=== PATIENT | male | born 1950 | race Caucasian/White ===

== ENCOUNTER 2017-01-07 08:59 | Day surgery (SDC) | payer MEDICARE, OTHER ==
[~2017-01-07] VITALS: Ht 175.3 cm; Wt 95.5 kg
[~2017-01-07 08:59] MED LIST: ASPIRIN 81 MG E81 MG PO; ASPIRIN EC81 M1 PO; HEMOCYTE PLUS C1 CAP PO; HYDROCODONE-APA1 TAB PO; K-DUR20 MEQ PO; LISINOPRIL-HCTZ1 T11 PO; PEPCID20 MG PO; PHENERGAN25 M1 PO; PLAVIX75 MG PO; PRILOSEC20 MG PO; PRINZIDE 20/12.1 TAB PO; TENORMIN25 MG PO
[2017-01-07 10:14] LABS: BASOPHILS 0.4 % (0.0-2.0); EOSINOPHILS 3.7 % (0-7); HEMATOCRIT 43.3 % (42.0-54.0); HEMOGLOBIN 14.7 g/dL (13.5-17.5); IMMATURE GRANULOCYTES 0.2 % (0-5); LYMPHOCYTES 34.1 % (15-50); MCH 30.6 pg (26.0-34.0); MCHC 33.9 g/dL (31.0-37.0); MEAN PLATELET VOLUME 9.3 fL (7.4-10.4); NEUTROPHILS 50.6 % (40-80); RBC 4.81 10x6/uL (4.20-6.10); RDW 13.2 % (11.5-14.5); WBC 5.7 10x3/uL (4.8-10.8)
[2017-01-07 10:29] LABS: CALC OSMOLALITY 278 mosm/kg (275-300); CALCIUM 8.8 mg/dL (8.5-10.1); CARBON DIOXIDE 28.7 mmol/L (21.0-32.0); CHLORIDE - SERUM 103 mmol/L (98-107); CREATININE - SERUM 0.9 mg/dL (0.6-1.3); GLUCOSE 105 mg/dL (74-106); POTASSIUM - SERUM 4.3 mmol/L (3.5-5.1); SODIUM 139 mmol/L (136-145); UREA NITROGEN 16 mg/dL (7-18); eGFR NON AFRICAN AMERICAN 90 mL/min (90-120)
[2017-01-07 10:36] LABS: PLATELET COUNT 161 10x3/uL (130-400)
[2017-01-07 12:00] VITALS: BP 159/52; Ht 175.3 cm; Wt 95.5 kg
--- NOTE | 2017-01-07 20:21 | NUR ---
1445 IV HAS BEEN DC'D WITH CATH INTACT, DC INSTS. GIVEN, VOICED UNDERSTANDING, RELEASED IN WC, [facility].
--- NOTE | 2017-01-22 12:04 | OP ---
PATIENT NAME: OVIDIO ENRIQUE MEDICAL RECORD: [id number] :52 LOCATION:D.OPS ADMISSION DATE: SURGEON: AZEEM SALGADO DO DATE OF OPERATION: 01/07/2017 ENDOSCOPIST: Azeem Salgado DO. SCOPE: Olympus video gastroscope. MEDICATIONS: Propofol 150 mg IV per anesthesia. INDICATIONS FOR PROCEDURE: Epigastric abdominal pain, dysphagia, pain provoked by eating. FINDINGS: Informed consent was given. The patient was made comfortable with the above medications. After reaching an adequate level of sedation by slow IV push, the patient was placed on his left side. The endoscope was then advanced through the mouth under direct visualization to the second portion of the duodenum. The proximal, middle and distal thirds of the esophagus all appeared normal. At the GE junction, there was evidence of LA class B reflux induced esophagitis. The scope was advanced into the stomach and retroflexed to view the Son fundoplication that has been present for approximately 1 year. The wrap appeared appropriate and intact. There were a few polyps in the fundus and body of the stomach, which appeared consistent with benign fundic gland polyps. One polyp was biopsied times 2 with cold forceps. The scope was advanced down to the antrum and prepyloric region, which appeared normal. It was then advanced into the bulb and second portion of the duodenum, which appeared normal. Four biopsies were taken in the small bowel and sent for histology. Scope was then withdrawn back into the stomach where random biopsies were taken to rule out H. pylori and sent for histology. Scope was then withdrawn from the patient. The patient tolerated the procedure well and there were no complications. ESTIMATED BLOOD LOSS: Less than 5 cc. IMPRESSION: 1. Grade B reflux induced esophagitis at the gastroesophageal junction. 2. Status post Son fundoplication intact. 3. Gastric polyps, which appear to be benign fundic gland polyps. PLAN AND RECOMMENDATIONS: 1. Await biopsies of small bowel, stomach, and gastric polyps. 2. Continue current medications. 3. Discuss symptoms with surgeon as the fundoplication could be playing a role in the pain after eating. 4. Recommend a low FODMAP diet and a followup in the GI clinic to further discuss symptoms and potential further workup. TRANSINT:[id number] Voice Confirmation ID: [id number] DOCUMENT ID: [id number] OPERATIVE REPORT [id number] ENRIQUE,OVIDIO M AZEEM SALGADO DO at 1204 CC: [id number] DICTATION DATE: 01/07/17 1321 DIRECTOR OF OPERATIONS: 01/08/17 0032 [facility] 01/07/17 [id number] [place] [address]
== END 2017-01-07 14:45 | disposition home or self-care (01) ==
LOC: D.OPS 08:59
PROVIDERS: Anesthesiology
DX: K21.0 Gastro-esophageal reflux disease with esophagitis (principal); K31.7 Polyp of stomach and duodenum; K29.80 Duodenitis without bleeding; K29.50 Unspecified chronic gastritis without bleeding

== ENCOUNTER → 2017-01-14 12:02 | Outpatient (CLI) | payer MEDICARE, OTHER ==
[2017-01-07 12:00] VITALS: BMI 31.0
== END | disposition home or self-care (01) ==
LOC: D.NM 12:02
DX: R10.13 Epigastric pain (principal); R13.10 Dysphagia, unspecified